=== PATIENT | female | born 1995 | race Caucasian/White ===

== ENCOUNTER → 2016-07-10 | Outpatient (CLI) | payer MEDICAID | LOC: HPND 12:34 | PROVIDERS: ATTEND Obstetrics & Gynecology | DX: O99.212 Obesity complicating pregnancy, second trimester (principal) | CPT/HCPCS: 76811 ==

== ENCOUNTER 2016-07-14 19:58 | Emergency (ER) | payer MEDICAID ==
[2016-07-14] MEDS ORDERED: MEPERIDINE HCL 25 MG/ML VIAL IM ONE (21:00)
[2016-07-14] MEDS ORDERED: PROMETHAZINE INJ 25 MG/ML VIAL IM ONE (21:00)
[2016-07-14 22:00] LABS: MUCUS URINE MANY /lpf (OCC); SQUAMOUS EPITHELIAL CELL URINE 1 /hpf (0-5)
[2016-07-14 22:01] LABS: BLOOD, URINE NEG (NEG); COMMENT (UR) CULT NOT INDICATED; CULTURE IF INDICATED CULT NOT INDICATED; GLUCOSE,URINE NEG (NEG); KETONE, URINE NEG (NEG); NITRITE,URINE NEG (NEG); URINE COLOR YELLOW (YELLW/STRAW)
--- NOTE | 2016-07-14 22:13 | PD ---
HPI Chief Complaint pain lower abd Date Seen: Jul 14, 2016 Time Seen: 17:00 Travel History International Travel<30 Days: No Contact w/Intl Traveler<30Days: No Known Affected Area: No History of Present Illness HPI 22 wk IUP c/o 1 day of LAP , no bleeding or SROM , + FHT 144 Para: 4 : 5 History Obstetric History Obstetric History 4 vag del Social History Narrative Social History slovenian speaking only Alcohol Use: No Tobacco Use: No Substance Abuse: No Allergies-Medications (Allergen,Severity, Reaction): Coded Allergies: No Known Allergies (Unverified , 07/14/16) Review of Systems General / Constitutional: No: Fever, Weight Gain, Chills, Other Eyes: No: Diploplia, Blurred Vision, Visual changes, Pain, Photophobia HENT: No: Headaches, Vertigo, Lightheadedness Cardiovascular: No: Irregular Rhythm, Chest Pain or Discomfort, Palpitations, Tachycardia, Syncope, Varicosities, Edema, Cyanosis Respiratory: No: Cough, Short of Breath, Other Gastrointestinal: Abdominal Pain, No: Nausea, Vomiting, Diarrhea Genitourinary: No: Decreased Urinary Output, Oliguria Musculoskeletal: No: Limited ROM, Weakness, Cramping, Edema, Pain Skin: No Rash, No Itching, No Dryness, No Lumps, No Change in Pigmentation, No Change in Nails, No Alopecia, No Lesions Neurologic: No: Weakness, Dizziness, Syncope, Focal Abnormalities, Coordination Problem, Headache, Slurred Speech, Seizures Psychiatric: No: Depression, Suicidal Ideations, Homicidal Ideation Endocrine: No: Heat Intolerance, Cold Intolerance, Polydipsia, Polyuria, Other Physical Exam Narrative GENERAL: Well-nourished, well-developed patient. SKIN: Warm and dry. HEAD: Normocephalic and atraumatic. EYES: No scleral icterus. No injection or drainage. ENT: No nasal drainage noted. Mucous membranes pink. Airway patent. NECK: Supple, trachea midline. No JVD. CARDIOVASCULAR: Regular rate and rhythm without murmurs, gallops, or rubs. RESPIRATORY: Breath sounds equal bilaterally. No accessory muscle use. BREASTS: Bilateral exam showed no masses , no retractions, no nipple discharge. ABDOMEN/GI: Abdomen soft, non-tender, bowel sounds present, no rebound, no guarding Gravid to [-22] weeks size Fundal Height: [at umbilicus-] GENITOURINARY: External Genitalia: intact and normal in appearance BUS glands: [-] Cervix: [closed -] Dilatation: [-0] Effacement: [-0] Station: [-3] : [-] FHT's: 144 ] EXTREMITIES: No cyanosis or edema. BACK: Nontender without obvious deformity. No CVA tenderness. NEUROLOGICAL: Awake and alert. Motor and sensory grossly within normal limits. Five out of 5 muscle strength in all muscle groups. Normal speech. Data Data Orders Vital Signs (Adult) .ON ADMISSION (07/14/16 20:47) ^ Labor Status (07/14/16 20:47) Urinalysis - C+S If Indicated (07/14/16 20:47) Meperidine Inj (Demerol Inj) (07/14/16 21:00) Promethazine Inj (Phenergan Inj) (07/14/16 21:00) Labs Laboratory Tests Test 07/14/16 20:40 Urine Color YELLOW Urine Turbidity CLEAR Urine pH 6.0 Urine Specific [place] 1.036 Urine Protein 30 Urine Glucose (UA) NEG Urine Ketones NEG Urine Occult Blood NEG Urine Nitrite NEG Urine Bilirubin NEG Urine Urobilinogen 4.0 Urine Leukocyte Esterase NEG Urine RBC 1 Urine WBC 1 Urine Squamous Epithelial 1 Cells Urine Mucus MANY Microscopic Urinalysis Comment CULT NOT INDICATED MDM Interpretation(s) 22 wk IUP with lower abd [pain today , no bleeding or SROM ,+ FHTs , UA neg, cx closed thick high Plan D/C home , give [id number] mg / phenergan 25 mg IM for pain , tylenol and po fluids at home Diagnosis Diagnosis: Primary Impression: Abdominal pain during in second trimester Disposition: 01 DISCHARGE HOME Condition: Stable Patient Instructions: General Instructions, Abdominal Pain in (ED) Additional Instructions: RETURN FOR CONTRACTIONS, LOSS OF FLUID (WATER BREAKING), VAGINAL BLEEDING, OR DECREASED MOVEMENT DRINK 8-10 LARGE GLASSES OF WATER EVERY DAY KEEP SCHEDULED APPOINTMENT WITH YOUR PROVIDER Departure Forms: Tests/Procedures Kevin Ramsay II, MD Jul 14, 2016 22:13
== END 2016-07-14 22:15 | disposition home or self-care (01) ==
LOC: HOBED 19:58
DX: O26.892 Other specified pregnancy related conditions, second trimester (principal); R10.9 Unspecified abdominal pain; Z3A.22 22 weeks gestation of pregnancy
CPT/HCPCS: 59025; 81001; 96372; 99284; J2175; J2550